=== PATIENT | female | born 1980 | race Caucasian/White ===

== ENCOUNTER 2020-07-11 06:53 | Outpatient (NON) | payer BC, SELFPAY ==
[2020-07-11 21:00] LABS: SARS-CoV-2 RNA PCR Negative
== END 2020-07-11 06:54 ==
LOC: ANHCOVIDDT 07:12
PROVIDERS: PCP Physician Assistant; Visit Provider Registered Nurse
DX: R05 Cough (principal); R09.89 Other specified symptoms and signs involving the circulatory and respiratory systems; Z20.828 Contact with and (suspected) exposure to other viral communicable diseases
CPT/HCPCS: 87635; C9803; U0003

== ENCOUNTER 2021-01-05 12:23 | Emergency (ER) | payer BC, SELFPAY ==
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
[2021-01-05 12:35] VITALS: BP 146/95; PULSE 109; RESP 19; TEMP 37.1; O2SAT 98
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
[2021-01-05 14:24] VITALS: RESP 16
== END 2021-01-05 14:20 | disposition home or self-care (01) ==
PROVIDERS: Emergency Provider Emergency Medicine; PCP Physician Assistant
DX: T74.91XA Unspecified adult maltreatment, confirmed, initial encounter (principal)
CPT/HCPCS: 70450; 72125; 99282; 99284